=== PATIENT | female | born 1995 | race Hispanic/Latino ===

== ENCOUNTER 2018-12-15 12:37 | Emergency (ER) | payer OTHER | END 2018-12-15 14:24 | disposition home or self-care (01) | LOC: ERS 12:37 | DX: J30.9 Allergic rhinitis, unspecified (principal); H66.92 Otitis media, unspecified, left ear | CPT/HCPCS: 99283 ==

== ENCOUNTER 2019-03-06 10:19 | Day surgery (SDC) | payer OTHER ==
[2019-03-06 10:54] VITALS: BMI 31.8
[2019-03-06] MEDS ORDERED: Betamet Acet/Betamet Na Ph 30 MG/5 ML VIAL ONE (11:02)
[2019-03-06] MEDS ORDERED: Betamet Acet/Betamet Na Ph 30 MG/5 ML VIAL IM SCH (12:30)
--- NOTE | 2019-03-06 12:40 | PDOC.LDHP ---
Labor and Delivery H&P Allergies/Adverse Reactions: Allergies Allergy/AdvReac Type Severity Reaction Status Date / Time No Known Allergies Allergy Verified 09/08/13 07:35 - Assessment 24 yo at 33 and 2/7 weeks, with EDC of 04/22/19, who presents for observation and further evaluation for Intrahepatic Cholistasis of ( ICP). Bile salts on 03/01/19 resulted at 29 (NL 1-10). NST/BPP in clinic on 01/18 10/ score. Patient brought in today for BMZ 1st dose and further evaluation. REVIEW OF SYSTEMS: Gen: no fever, chills, or sweats Neuro: no numbness/tingling, no weakness, no headache Eyes: no current visual changes ENT: no hearing changes, no sore throat, no runny nose Resp: no cough, no SOB, no wheeze Card: denies chest pain, no palpitations GI: no N/V/D, no abdominal pain : no dysuria, no hematuria, no vaginal DC MSK: no issues noted Heme: no easy bruising/bleeding Skin: no rash, itching noted, worse on hands and feet. Medical Hx: SAB x 2 Surgical Hx: D&C x 1 Social Hx: No T/E/D Family Hx: Non-Contributory Allergies: NKDA Medications: Vitamins, Actigal 300mg po TID orderd - pending pre-auth PHYSICAL EXAMINATION: General: NAD, alert and oriented x3 HEENT: PERRLA, EOMI, normal sclera, oropharynx without erythema or exudate Neck: Supple. Full ROM. Heart/Cardiovascular System: RRR, Cap refill < 3 seconds, no rub, no murmur Lungs/Respiratory System: clear to auscultation bilaterally. No increased work of breathing. Room air. Abdomen/Gastro-Intestinal System: no abdominal tenderness, normal bowel sounds, Gravid Pelvic Exam: Deferred Extremeties: Warm extremities. No cyanosis, erythema, or edema Neuro: No gross deficits appreciated. CN 2-12 grossly intact Psychiatry: Awake, Alert and cooperative with exam Skin/ Integumentory: No lesions, rashes, or ulcers Musculoskeletal: Full ROM A/P: Assessment: 1. 24 y/o at 33 and 2/7 weeks present for observation and further work- up of ICP 2. Intrahepatic Cholistasis of (ICP) 3. Elevatged Bile Acids at 29 Plan: 1. BMZ course started - 1st dose today 2. NST today reacticve and reassuring, Category 1 tracing. 3. Repeat Bile Acid testing sent today 4. DC home with movement precautions 5. Return to L&D tomorrow for next BMZ dose. CMP planned tomorrow.
== END 2019-03-06 12:27 | disposition home health service (06) ==
LOC: L&D/OP 10:19
PROVIDERS: ATTEND Obstetrics & Gynecology
DX: O26.613 Liver and biliary tract disorders in pregnancy, third trimester (principal); K83.1 Obstruction of bile duct; E78.70 Disorder of bile acid and cholesterol metabolism, unspecified; Z87.59 Personal history of other complications of pregnancy, childbirth and the puerperium; Z3A.33 33 weeks gestation of pregnancy
CPT/HCPCS: 36415; 59025; 82239; 96372; 99282; J0702

== ENCOUNTER 2019-03-07 11:42 | Day surgery (SDC) | payer OTHER ==
[2019-03-07] MEDS ORDERED: Betamet Acet/Betamet Na Ph 30 MG/5 ML VIAL ONE (12:18)
[2019-03-07 12:58] VITALS: BMI 31.8
[2019-03-07 13:10] LABS: ALT (SGPT) 36 U/L (8-55); AST (SGOT) 24 U/L (5-34); Albumin 3.3 g/dL (3.5-5.0); Alkaline Phosphatase 268 U/L (40-150); Bilirubin, Direct 0.5 mg/dL (0.1-0.3); Bilirubin, Total 1.4 mg/dL (0.2-1.2); Protein, Total 6.8 g/dL (6.0-8.3)
--- NOTE | 2019-03-07 13:14 | PDOC.LDHP ---
Labor and Delivery H&P Allergies/Adverse Reactions: Allergies Allergy/AdvReac Type Severity Reaction Status Date / Time No Known Allergies Allergy Verified 09/08/13 07:35 - Plan -: 24 yo at 33 and 3/7 weeks, with EDC of 04/22/19, who presents for observation and further evaluation for Intrahepatic Cholistasis of ( ICP). Bile salts on 03/01/19 resulted at 29 (NL 1-10). NST/BPP in clinic on 01/18 10/10 score. Patient brought in today for BMZ 2nd dose and further evaluation. REVIEW OF SYSTEMS: Gen: no fever, chills, or sweats Neuro: no numbness/tingling, no weakness, no headache Eyes: no current visual changes ENT: no hearing changes, no sore throat, no runny nose Resp: no cough, no SOB, no wheeze Card: denies chest pain, no palpitations GI: no N/V/D, no abdominal pain : no dysuria, no hematuria, no vaginal DC MSK: no issues noted Heme: no easy bruising/bleeding Skin: no rash, itching noted, worse on hands and feet. Medical Hx: SAB x 2 Surgical Hx: D&C x 1 Social Hx: No T/E/D Family Hx: Non-Contributory Allergies: NKDA Medications: Vitamins, Actigal 300mg po TID orderd - pending pre-auth PHYSICAL EXAMINATION: General: NAD, alert and oriented x3 HEENT: PERRLA, EOMI, normal sclera, oropharynx without erythema or exudate Neck: Supple. Full ROM. Heart/Cardiovascular System: RRR, Cap refill < 3 seconds, no rub, no murmur Lungs/Respiratory System: clear to auscultation bilaterally. No increased work of breathing. Room air. Abdomen/Gastro-Intestinal System: no abdominal tenderness, normal bowel sounds, Gravid Pelvic Exam: Deferred Extremeties: Warm extremities. No cyanosis, erythema, or edema Neuro: No gross deficits appreciated. CN 2-12 grossly intact Psychiatry: Awake, Alert and cooperative with exam Skin/ Integumentory: No lesions, rashes, or ulcers Musculoskeletal: Full ROM A/P: Assessment: 1. 24 y/o at 33 and 3/7 weeks present for observation and further work- up of ICP 2. Intrahepatic Cholistasis of (ICP) 3. Elevatged Bile Acids at 29 Plan: 1. BMZ course started - 2nd dose today 2. NST today reacticve and reassuring, Category 1 tracing. 3. Repeat Bile Acid testing pending 4. DC home with movement precautions 5. Liver Function Testing ordered today 6. DC home with close F/U in clinic planned 7 Delivery tentatively planned at 37 weeks
[2019-03-07] MEDS ORDERED: Betamet Acet/Betamet Na Ph 30 MG/5 ML VIAL IM SCH (13:15)
== END 2019-03-07 13:37 | disposition home health service (06) ==
LOC: L&D/OP 11:42
PROVIDERS: ATTEND Obstetrics & Gynecology
DX: O26.619 Liver and biliary tract disorders in pregnancy, unspecified trimester (principal); E78.79 Other disorders of bile acid and cholesterol metabolism; Z3A.33 33 weeks gestation of pregnancy
CPT/HCPCS: 36415; 59025; 80076; 96372; 99282; J0702

== ENCOUNTER 2019-03-23 10:08 | Day surgery (SDC) | payer OTHER ==
[2019-03-23 10:42] VITALS: BMI 32.3
[2019-03-23] MEDS ORDERED: Betamet Acet/Betamet Na Ph 30 MG/5 ML VIAL ONE (11:39)
[2019-03-23] MEDS ORDERED: Betamet Acet/Betamet Na Ph 30 MG/5 ML VIAL IM SCH (12:00)
--- NOTE | 2019-03-23 12:12 | PDOC.EVN ---
Event Note - Event Note Event Note: Patient here for NST for cholestasis of , no complaints. AFVSS NST reactive. Baseline 125s, mod variability, + accels, no decels. [place] with occasional ctx. Received 1 rescue dose celestone per [facility] recommendation. Will return tomorrow for induction of labor.
== END 2019-03-23 12:20 | disposition home or self-care (01) ==
LOC: L&D/OP 10:08
PROVIDERS: ATTEND Obstetrics & Gynecology
DX: Z29.8 Encounter for other specified prophylactic measures (principal); Z01.89 Encounter for other specified special examinations
CPT/HCPCS: 59025; 96372; 99282; J0702

== ENCOUNTER 2019-03-24 18:00 | Inpatient (IN) | payer OTHER ==
[2019-03-24] MEDS ORDERED: hydrALAZINE 20 MG/ML VIAL SLOW IVP PRN (18:55)
[2019-03-24] MEDS ORDERED: Zolpidem Tartrate 5 MG TAB PO PRN (18:55)
[2019-03-24] MEDS ORDERED: Diphenoxylate HCl/Atropine Tablet PO PRN ×2 (18:55)
[2019-03-24] MEDS ORDERED: Ibuprofen 800 MG TAB PO PRN (18:55)
[2019-03-24] MEDS ORDERED: Promethazine HCl 25 MG/ML VIAL IM PRN (18:55)
[2019-03-24] MEDS ORDERED: Misoprostol 200 MCG TAB PR PRN (18:55)
[2019-03-24] MEDS ORDERED: Methylergonovine 0.2 MG/ML VIAL IM PRN (18:55)
[2019-03-24] MEDS ORDERED: Lidocaine 1% (PF) 30 ML VIAL SC PRN (18:55)
[2019-03-24] MEDS ORDERED: Carboprost 250 MCG/ML AMP IM PRN (18:55)
[2019-03-24] MEDS ORDERED: Acetaminophen 500 MG TAB PO PRN (18:55)
[2019-03-24] MEDS ORDERED: Ondansetron PF 4 MG/2 ML Vial IVP PRN (18:55)
[2019-03-24] MEDS ORDERED: Butorphanol Tartrate 1 MG/ML VIAL SLOW IVP PRN (18:55)
[2019-03-24] MEDS ORDERED: HYDROcodone/Acetaminophen 5/325 mg Tablet PO PRN ×2 (18:55)
[2019-03-24] MEDS ORDERED: NS w/ Oxytocin 10 units 500 ML IV SCH ×2 (19:00)
--- NOTE | 2019-03-24 19:04 | PDOC.LDHP ---
Labor and Delivery H&P Current gestational age (weeks): 35 Due date: 04/22/19 Grav: 5 Para: 2 Current complications: other (ICP (severe)) Abnormal US findings: No Current medications: pre- vitamins, other (Actigal 250mg po TID) Previous surgical history: none Allergies/Adverse Reactions: Allergies Allergy/AdvReac Type Severity Reaction Status Date / Time No Known Allergies Allergy Verified 09/08/13 07:35 Social history: none - Physical Exam Vital signs reviewed and normal: yes General: NAD Lungs: CTAB Abdomen: gravid Extremeties: no edema FHT: category 1 - Assessment ICP (severe) with MFM recommendation to deliver at 36 weeks. - Plan Plan: admit to L&D, cervical ripening
[2019-03-24 19:41] LABS: Hemoglobin 11.6 g/dL (12.0-16.0); Mean Corpuscular HGB CONC 33.8 g/dL (32.0-36.0); Mean Corpuscular Hemoglobin 24.7 pg (27.0-31.0); Mean Corpuscular Volume 73.2 fL (78.0-98.0); Mean Platelet Volume 10.3 fL (7.4-10.4); Platelet Count 295 thou/uL (130-400); RBC Distribution Width 14.6 % (11.5-14.5); Red Blood Cell (RBC) Count 4.67 mill/uL (4.20-5.40); White Blood Cell (WBC) Count 9.1 thou/uL (4.8-10.8)
[2019-03-24] MEDS: Misoprostol 100 MCG TAB VAG SCH (19:50)
[2019-03-24] MEDS: Lactated Ringer's 1,000 ML IV SCH (19:51)
[2019-03-24 19:53] LABS: ALT (SGPT) 102 U/L (8-55); AST (SGOT) 56 U/L (5-34); Albumin 3.7 g/dL (3.5-5.0); Alkaline Phosphatase 281 U/L (40-150); Anion Gap 19 mmol/L (10-20); BUN (Urea Nitrogen) 10 mg/dL (7.0-18.7); Bilirubin, Total 1.5 mg/dL (0.2-1.2); Calc. Creatinine Clearance 1265 mL/min (70-130); Calcium 9.3 mg/dL (7.8-10.44); Carbon Dioxide 17 mmol/L (22-29); Chloride 102 mmol/L (98-107); Estimated GFR-MDRD 84; Globulin 3.5 g/dL (2.4-3.5); Glucose 75 mg/dL (70-105); Potassium 3.9 mmol/L (3.5-5.1); Protein, Total 7.2 g/dL (6.0-8.3); Sodium 134 mmol/L (136-145)
[2019-03-24 20:12] LABS: Syphilis Antibody Nonreactive (Nonreactive); Syphilis Antibody Index 0.07 S/CO (<1.00 Non-Reactive)
[2019-03-24 20:18] LABS: HBSAg Index 0.24 S/CO (0-0.99); Hep B Surf Ag Non-Reactive S/CO (NonReactive)
[2019-03-25] MEDS: Misoprostol 100 MCG TAB VAG SCH ×3 (00:07→16:10)
[2019-03-25] MEDS: Lactated Ringer's 1,000 ML IV SCH ×3 (01:45→10:57)
[2019-03-25 03:35] VITALS: BMI 34.1
[2019-03-25] MEDS ORDERED: Fentanyl 4 mcg/Bup 0.1% Cadd 100 ML ONE (06:22)
[2019-03-25] MEDS ORDERED: Naloxone HCl 0.4 mg/ml Vial IVP PRN ×2 (07:24)
[2019-03-25] MEDS ORDERED: Lactated Ringer's 500 ML IV PRN (07:24)
[2019-03-25] MEDS ORDERED: Promethazine HCl 25 MG/ML VIAL IM PRN ×2 (07:24→14:53)
[2019-03-25] MEDS ORDERED: Ondansetron PF 4 MG/2 ML Vial IVP PRN ×2 (07:24→14:53)
[2019-03-25] MEDS ORDERED: diphenhydrAMINE 50 MG/ML VIAL IVP PRN (07:24)
[2019-03-25] MEDS ORDERED: Acetaminophen 325 MG TAB PO PRN (07:24)
[2019-03-25] MEDS ORDERED: ePHEDrine/0.9% NaCl/PF SYRINGE 50 mg/10 ml SLOW IVP PRN (07:24)
[2019-03-25] MEDS ORDERED: Communication Order-Pharmacy FS SCH (07:30)
[2019-03-25] MEDS ORDERED: Fentanyl 4 mcg/Bupivacaine 0.1% Cassette 100 ML EPIDURAL SCH (07:30)
[2019-03-25] MEDS: NS / Oxytocin 40 units/1000ml 1,000 ML IV PRN ×2 (12:35→13:32)
[2019-03-25] MEDS ORDERED: Methylergonovine 0.2 MG/ML VIAL IM PRN (14:53)
[2019-03-25] MEDS ORDERED: HYDROcodone/Acetaminophen 5/325 mg Tablet PO PRN ×2 (14:53)
[2019-03-25] MEDS ORDERED: diphenhydrAMINE 25 MG CAP PO PRN (14:53)
[2019-03-25] MEDS ORDERED: Varicella virus, LIVE 0.5 ML VIAL SC ONE (14:53)
[2019-03-25] MEDS ORDERED: Misoprostol 200 MCG TAB VAG PRN (14:53)
[2019-03-25] MEDS ORDERED: NS / Oxytocin 40 units/1000ml 1,000 ML IV SCH (14:53)
[2019-03-25] MEDS ORDERED: Measles/Mumps/Rubella 10 MCG/0.5 ML VIAL SC ONE (14:53)
[2019-03-25] MEDS ORDERED: Adacel (T-DAP) 0.5 ML SYRINGE IM ONE (14:53)
[2019-03-25] MEDS ORDERED: hydrALAZINE 20 MG/ML VIAL SLOW IVP PRN (14:53)
[2019-03-25] MEDS ORDERED: Bisacodyl 10 MG SUPP PR PRN (14:53)
[2019-03-25] MEDS ORDERED: Milk Of Magnesia 30 ML UDCUP PO PRN (14:53)
[2019-03-25] MEDS ORDERED: Preparation H Ointment 28 GM TUBE PR PRN (14:53)
[2019-03-25] MEDS ORDERED: Lanolin Ointment 7 GM TUBE TOP PRN (14:53)
[2019-03-25] MEDS ORDERED: Benzocaine-Menthol 82.5 ML CAN TOP PRN (14:53)
[2019-03-25] MEDS ORDERED: Zolpidem Tartrate 5 MG TAB PO PRN (14:53)
[2019-03-25] MEDS: Ibuprofen 800 MG TAB PO SCH ×2 (15:00→21:53)
[2019-03-25] MEDS: Ferrous Sulfate 325 MG TAB PO SCH (16:08)
[2019-03-25] MEDS ORDERED: Bupivacaine HCl 0.25%/Epi 0.0005/PF 10 ML VIAL FS ONE (18:00)
[2019-03-25] MEDS ORDERED: Lidocaine 2% MPF 10 ML AMP (For Epidural Use) ONE (18:00)
[2019-03-25] MEDS: Docusate Calcium (SURFAK) 240 MG CAP PO SCH (21:53)
[2019-03-26] MEDS: Ibuprofen 800 MG TAB PO SCH ×3 (05:42→21:42)
[2019-03-26 07:13] LABS: Hemoglobin 9.1 g/dL (12.0-16.0)
[2019-03-26] MEDS: Docusate Calcium (SURFAK) 240 MG CAP PO SCH ×2 (09:28→21:42)
[2019-03-26] MEDS: Ferrous Sulfate 325 MG TAB PO SCH ×2 (09:28→17:21)
[2019-03-27] MEDS: Ibuprofen 800 MG TAB PO SCH ×2 (05:49→14:45)
--- NOTE | 2019-03-27 07:15 | PDOC.PP ---
Post Progress Note Post Day #: 1 PO intake tolerated: yes Flatus: yes Ambulation: yes Vital Signs (12 hours) Temp Pulse Resp BP Pulse Ox 03/26/19 19:24 97.6 F 79 16 120/73 99 Weight Weight 169 lb - Physical Examination General: NAD Cardiovascular: no m/r/g Respiratory: clear to auscultation bilaterally Abdominal: + bowel sounds, lochia Extremities: negative homans (B) Neurological: no gross focal deficits (DC home tomorrow) Psychiatric: A&Ox3, normal affect Result Diagrams: 03/26/19 06:40 03/24/19 19:27 Additional Labs: Post Labs Blood Type O POSITIVE 03/24/19 19:27 Hep Bs Antigen Non-Reactive S/CO (NonReactive) 03/24/19 19:27
[2019-03-27] MEDS: Ferrous Sulfate 325 MG TAB PO SCH (09:46)
[2019-03-27] MEDS: Docusate Calcium (SURFAK) 240 MG CAP PO SCH (09:46)
[2019-03-27 11:28] VITALS: BP 114/70; TEMP 98.3
== END 2019-03-27 16:14 | disposition home or self-care (01) | DRG 805 ==
LOC: L&D 18:13 → 3SE 03-25 16:05
PROVIDERS: ADMIT Obstetrics & Gynecology; ATTEND Obstetrics & Gynecology
PROC: 10E0XZZ Delivery of Products of Conception, External Approach (ICD-10-PCS; principal; 2019-03-25)
PROC: 3E0P7VZ Introduction of Hormone into Female Reproductive, Via Natural or Artificial Opening (ICD-10-PCS; 2019-03-25)
PROC: 0HQ9XZZ Repair Perineum Skin, External Approach (ICD-10-PCS; 2019-03-25)
DX: O99.354 Diseases of the nervous system complicating childbirth (principal); K83.1 Obstruction of bile duct; Z37.0 Single live birth; Z3A.36 36 weeks gestation of pregnancy; G93.2 Benign intracranial hypertension; O26.62 Liver and biliary tract disorders in childbirth; O70.1 Second degree perineal laceration during delivery
CPT/HCPCS: 36415; 51702; 80053; 85014; 85018; 85027; 86780; 86850; 86900; 86901; 87340; 90707; 90715; 90716; J2001; J2590

== ENCOUNTER 2019-12-14 19:50 | Observation (INO) | payer MEDICAID, OTHER ==
[2019-12-14 20:42] LABS: Bilirubin Small (Negative); Blood, Urine Negative (Negative); Clarity Hazy (Clear); Glucose, Urine (Dipstick) Negative (Negative); Leukocyte Negative (Negative); Nitrite Negative (Negative); Protein, Urine (Dipstick) Negative (Neg-Trace)
[2019-12-14 21:22] LABS: #Lymphocytes 0.5 thou/uL (1.20-3.40); #Monocytes 0.6 thou/uL (0.11-0.59); #Neutrophils 6.1 thou/uL (1.40-6.50); %Basophils 0.1 % (0.0-1.0); %Eosinophils 0.3 % (0.0-10.0); %Lymphocytes 7.2 % (21.0-51.0); %Monocytes 7.6 % (0.0-10.0); %Neutrophils 84.8 % (42.0-75.0); Hemoglobin 14.2 g/dL (12.0-16.0); Mean Corpuscular HGB CONC 35.2 g/dL (32.0-36.0); Mean Corpuscular Hemoglobin 29.2 pg (27.0-31.0); Mean Corpuscular Volume 82.9 fL (78.0-98.0); Mean Platelet Volume 9.4 fL (7.4-10.4); Platelet Count 197 thou/uL (130-400); RBC Distribution Width 12.3 % (11.5-14.5); Red Blood Cell (RBC) Count 4.86 mill/uL (4.20-5.40); White Blood Cell (WBC) Count 7.1 thou/uL (4.8-10.8)
--- NOTE | 2019-12-14 21:25 | RAD ---
Portable frontal chest radiograph: 12/14/2019 COMPARISON: None HISTORY: Fever FINDINGS: Lungs are clear. Heart and mediastinal contours appear within normal limits. IMPRESSION: No acute findings.
[2019-12-14] MEDS ORDERED: Acetaminophen 325 MG TAB ONE (21:38)
[2019-12-14] MEDS ORDERED: Ondansetron PF 4 MG/2 ML Vial ONE (21:38)
[2019-12-14 21:46] LABS: ALT (SGPT) 17 U/L (8-55); AST (SGOT) 14 U/L (5-34); Albumin 4.5 g/dL (3.5-5.0); Alkaline Phosphatase 84 U/L (40-110); Anion Gap 14 mmol/L (10-20); BUN (Urea Nitrogen) 5 mg/dL (7.0-18.7); Bilirubin, Total 1.5 mg/dL (0.2-1.2); Calc. Creatinine Clearance 0 mL/min (70-130); Calcium 9.7 mg/dL (7.8-10.44); Carbon Dioxide 21 mmol/L (22-29); Chloride 102 mmol/L (98-107); Estimated GFR-MDRD Greater than 90; Globulin 3.3 g/dL (2.4-3.5); Glucose 91 mg/dL (70-105); Potassium 3.3 mmol/L (3.5-5.1); Protein, Total 7.8 g/dL (6.0-8.3); Sodium 134 mmol/L (136-145)
--- NOTE | 2019-12-14 23:06 | MRI ---
MRI of theabdomen: 12/14/2019 COMPARISON:None available HISTORY:Lower abdominal pain and vomiting TECHNIQUE: Multiplanar multisequence MR imaging of the abdomen obtained without contrast Findings:There is an intrauterine gestation present, incompletely assessed on this exam. Bilateral ovaries demonstrate a grossly unremarkable appearance. The inferior aspect of the liver appears unremarkable. The liver is not fully visualized on this exam . The spleen is not imaged. Visualized portions of the kidneys are grossly unremarkable. Arterial flow voids within the imaged abdomen appear grossly unremarkable. The pancreas and gallbladder are no t fully assessed on this exam. The imaged osseous structures appear grossly unremarkable. No lymphadenopathy is apparent. The appendix is visualized and appears unremarkable IMPRESSION: No evidence for appendicitis.
[2019-12-15] MEDS ORDERED: Acetaminophen 325 MG TAB PO PRN (02:07)
[2019-12-15] MEDS ORDERED: Ondansetron PF 4 MG/2 ML Vial IVP PRN (02:07)
[2019-12-15] MEDS ORDERED: Ondansetron ODT 4 MG TAB SL PRN (02:07)
[2019-12-15] MEDS ORDERED: Dextrose 5 %-0.45 % NaCl 1,000 ML IV SCH (02:15)
[2019-12-15] MEDS ORDERED: Calcium Carbonate 500 MG ChewTAB PO PRN (02:43)
[2019-12-15] MEDS ORDERED: Promethazine HCl 12.5 MG in Sodium Chloride 0.9% 50 ML IVPB PRN (02:43)
[2019-12-15 02:44] VITALS: BMI 28.0
[2019-12-15] MEDS ORDERED: Lactated Ringer's 1,000 ML IV SCH ×3 (02:45→12:00)
--- NOTE | 2019-12-15 02:55 | PDOC.FPROB ---
FMR OB H&P: HPI - History of Present Illness Chief Complaint: Nausea, vomiting, fever Indentification: 24yo female at 10wks History of Present Illness: 24yo female at 10wks presents with nausea, vomiting for the last 3-4 weeks and fever that started 3/15 around 1pm with Tmax of 101. Vomiting 6x per day. Reports having lower abdominal pain starting today but it has mostly resolved. Received 2L IVF in the ED and felt better afterwards, has urinated more than once since receiving fluids. Also received 8mg Zofran and Tylenol with some relief in symtpoms she was able to tolerate eating an orange. No vomiting since presentation to ED. Endorses congestion. Denies cough, sore throat, dysuria, sick contacts, diarrhea. Rapid flu swab in ED was neg. MRI was neg for appendicitis. Primary Care Physician: Dr Noguera FMR OB H&P: Current - Care : 6 Para: 3 Gestational age: 10.0wks FMR OB H&P: History - Past Medical History PMH: Denies - Surgical History Sx History: D&C 2011 - Social History Social History: Denies tobacco, alcohol and drug use - Family History Family History: Unremarkable FMR OB H&P: Medications - Current Home Medications: Medication Instructions Recorded Confirmed Type Vitamin 1 tab PO DAILY #0 tab 09/09/13 03/25/19 Rx Ursodiol [Rafael] 250 mg PO TID 03/23/19 03/25/19 History Calcium Carbonate [Tums] 1,000 mg PO Q4H PRN tab 12/15/19 Rx Doxylamine Succinate/Vit B6 2 tablet PO HS #60 tablet. 12/15/19 Rx [Ebenezer BRAVO] Allergies/Adverse Reactions: Allergies Allergy/AdvReac Type Severity Reaction Status Date / Time No Known Allergies Allergy Verified 09/08/13 07:35 FMR OB H&P: ROS - Review of Systems General: reports: fever/chills, fatigue Eyes: denies: vision changes, double vision ENT: reports: nasal congestion. denies: rhinorrhea, sore throat Cardiovascular: denies: chest pain, edema Respiratory: reports: congestion. denies: cough Gastrointestinal: reports: abdominal pain, nausea, vomiting. denies: diarrhea Genitourinary (Female): denies: dysuria, polyuria Neurologic: denies: weakness Integumentary: denies: rash, lesions FMR OB H&P: Vital Signs - Maternal Vital signs: Temp 98.2 BP: 115/53 HR: 95 RR: 17 FMR OB H&P: Physical Exam - Physical Exam General: NAD, awake, alert and oriented HEENT: normocephalic and atraumatic, conjunctiva clear, grossly normal hearing, oropharynx clear Deviation from normal: Dry MM Neck: supple, trachea midline Heart: RRR, no murmurs/rubs/gallops General: CTAB, no respiratory distress, no wheezing Abdomen: soft, gravid, non-tender, bowel sound present Musculoskeletal: pulses present, no misalignment/asymmetry, no atrophy Neurological: no focal deficit Skin: no rash Lymphatic: no petechia Psychiatric: intact recent and remote memory, good judgement and insight, normal mood and affect FMR OB H&P: Results - Labs Lab results: Laboratory Results - last 24 hr 12/14/19 12/14/19 12/14/19 20:00 21:13 21:13 WBC 7.1 RBC 4.86 Hgb 14.2 Hct 40.3 MCV 82.9 MCH 29.2 MCHC 35.2 RDW 12.3 Plt Count 197 MPV 9.4 Neutrophils % 84.8 H Lymphocytes % 7.2 L Monocytes % 7.6 Eosinophils % 0.3 Basophils % 0.1 Neutrophils # 6.1 Lymphocytes # 0.5 L Monocytes # 0.6 H Eosinophils # 0.0 Basophils # 0.0 Sodium 134 L Potassium 3.3 L Chloride 102 Carbon Dioxide 21 L Anion Gap 14 BUN 5 L Creatinine 0.75 Estimated GFR (MDRD) Greater than 90 Glucose 91 Calcium 9.7 Total Bilirubin 1.5 H AST 14 ALT 17 Alkaline Phosphatase 84 Serum Total Protein 7.8 Albumin 4.5 Globulin 3.3 Albumin/Globulin Ratio 1.4 Total Beta HCG Urine Color Yellow Urine Clarity Hazy Urine pH 8.5 Ur Specific [employer] 1.015 Urine Protein Negative Urine Glucose (UA) Negative Urine Ketones 80 A Urine Blood Negative Urine Nitrite Negative Urine Bilirubin Small A Urine Urobilinogen 4.0 A Ur Leukocyte Esterase Negative 12/14/19 21:13 WBC RBC Hgb Hct MCV MCH MCHC RDW Plt Count MPV Neutrophils % Lymphocytes % Monocytes % Eosinophils % Basophils % Neutrophils # Lymphocytes # Monocytes # Eosinophils # Basophils # Sodium Potassium Chloride Carbon Dioxide Anion Gap BUN Creatinine Estimated GFR (MDRD) Glucose Calcium Total Bilirubin AST ALT Alkaline Phosphatase Serum Total Protein Albumin Globulin Albumin/Globulin Ratio Total Beta HCG 733848.93 H Urine Color Urine Clarity Urine pH Ur Specific [employer] Urine Protein Urine Glucose (UA) Urine Ketones Urine Blood Urine Nitrite Urine Bilirubin Urine Urobilinogen Ur Leukocyte Esterase FMR OB H&P: A/P Disposition: 24yo female at 10wks presents with nausea, vomiting and abdominal pain. Moderate Dehydration 2/2 likely viral gastroenteritis - Initially tachycardic and febrile. Received 2L IVF in ED. MRI neg for appendicitis. UA and Flu neg. Likely viral gastroenteritis - Will continue her on a little above maintenance fluids overnight, strict I&Os and adjust rate accordingly until she is tolerating PO - NPO with advance diet as tolerate. Advised to avoid hot foods with scents. - Scheduled Zofran 4mg q6hr, Unisom qHS and Vit B6 BID. PRN phenergan available. Hypokalemia - 3.3 - LR with 20meq KCl then switch to LR @120 Discussion: Date/Time: 12/15/19 0253 This H&P was discussed with Dr. Ochoa who agrees with the above documentation and plan. Addendum - Attending - Attending Attestation Date/Time: 12/17/19 0024 I personally evaluated the patient and discussed the management with Dr. Reyes I agree with the History, Examination, Assessment and Plan documented above with any addition or exceptions noted below. Gasteroenteritis less likely, More likely experiencing nausea and vomiting of . Pt has be iv hydrated and is tolerating PO. PT is discharged home with instructions to f/u with pcp, dr noguera
[2019-12-15] MEDS ORDERED: Potassium Chloride 20 MEQ in Lactated Ringer's 1,000 ML IV SCH ×2 (03:15→03:30)
[2019-12-15] MEDS: Ondansetron PF 4 MG/2 ML Vial IVP SCH ×2 (04:07→10:35)
[2019-12-15] MEDS ORDERED: FLU VACC QS2019-20(6MOS UP)/PF 60 MCG/0.5 ML SYRINGE IM ONE (09:00)
[2019-12-15 12:40] VITALS: BP 92/54; TEMP 98.9
--- NOTE | 2019-12-15 14:56 | PDOC.OBAPN ---
FMR OB AP PN: Sub - Interval History Hospital Day: 1 Chief Complaint: mild nausea Interval History: Tolerated breakfast well. No vomiting since getting to the floor. R OB AP PN: Obj - Maternal Vital signs: BP: 92/54 HR: 86 RR: 18 Tmax: 98.9F Pox: 98% on RA Wt: 63.049 kg - Urine output I&O: 12/14/19 12/15/19 12/16/19 06:59 06:59 06:59 Intake Total 480 240 Output Total 600 Balance 480 -360 R OB AP PN: Exam - Physical Exam General: NAD, awake, alert and oriented HEENT: normocephalic and atraumatic, MMM, grossly normal vision, grossly normal hearing General: no respiratory distress Abdomen: gravid Musculoskeletal: FROM in all four extremities Neurological: cranial nerves II through XII intact, sensation to pain,touch and proprioception grossly normal, no focal deficit Skin: no rash Psychiatric: intact recent and remote memory, good judgement and insight, normal mood and affect R OB AP PN: Data - Labs Lab results: Laboratory Results - last 24 hr 12/14/19 12/14/19 12/14/19 20:00 21:13 21:13 WBC 7.1 RBC 4.86 Hgb 14.2 Hct 40.3 MCV 82.9 MCH 29.2 MCHC 35.2 RDW 12.3 Plt Count 197 MPV 9.4 Neutrophils % 84.8 H Lymphocytes % 7.2 L Monocytes % 7.6 Eosinophils % 0.3 Basophils % 0.1 Neutrophils # 6.1 Lymphocytes # 0.5 L Monocytes # 0.6 H Eosinophils # 0.0 Basophils # 0.0 Sodium 134 L Potassium 3.3 L Chloride 102 Carbon Dioxide 21 L Anion Gap 14 BUN 5 L Creatinine 0.75 Estimated GFR (MDRD) Greater than 90 Glucose 91 Calcium 9.7 Total Bilirubin 1.5 H AST 14 ALT 17 Alkaline Phosphatase 84 Serum Total Protein 7.8 Albumin 4.5 Globulin 3.3 Albumin/Globulin Ratio 1.4 Total Beta HCG Urine Color Yellow Urine Clarity Hazy Urine pH 8.5 Ur Specific [place] 1.015 Urine Protein Negative Urine Glucose (UA) Negative Urine Ketones 80 A Urine Blood Negative Urine Nitrite Negative Urine Bilirubin Small A Urine Urobilinogen 4.0 A Ur Leukocyte Esterase Negative 12/14/19 21:13 WBC RBC Hgb Hct MCV MCH MCHC RDW Plt Count MPV Neutrophils % Lymphocytes % Monocytes % Eosinophils % Basophils % Neutrophils # Lymphocytes # Monocytes # Eosinophils # Basophils # Sodium Potassium Chloride Carbon Dioxide Anion Gap BUN Creatinine Estimated GFR (MDRD) Glucose Calcium Total Bilirubin AST ALT Alkaline Phosphatase Serum Total Protein Albumin Globulin Albumin/Globulin Ratio Total Beta HCG 300807.93 H Urine Color Urine Clarity Urine pH Ur Specific [place] Urine Protein Urine Glucose (UA) Urine Ketones Urine Blood Urine Nitrite Urine Bilirubin Urine Urobilinogen Ur Leukocyte Esterase FMR OB AP PN: A/P - Problem List (1) Nausea and vomiting during prior to 22 weeks gestation Status: Acute Code(s): O21.9 - VOMITING OF , UNSPECIFIED Disposition: 24yo female at 10 wks who presented with nausea, vomiting and abdominal pain 2/2 suspected viral gastroenteritis. Moderate Dehydration 2/2 likely viral gastroenteritis - Initially tachycardic and febrile but has since resolved s/p 2L IVF in ED & IVFs overnight. MRI neg for appendicitis. UA and Flu neg. Likely viral gastroenteritis. - Tolerated breakfast well with no emesis since admission. Will d/c IVFs & see how patient tolerates lunch and if she does w/o any issues will d/c home with script for diclegis & instructions to f/u w/ Dr. Stallings tomorrow as an outpatient. Hypokalemia - s/p replacement w/ IVFs. Dispo: Anticipate d/c home later today w/ close f/u with PCP as an outpatient. Discussion: Date/Time: 12/15/19 5015 This H&P was discussed with Dr. Hoover who agrees with the above documentation and plan.
--- NOTE | 2019-12-15 16:38 | DIS ---
DATE OF ADMISSION: 12/15/2019 DATE OF DISCHARGE: 12/15/2019 ADMITTING DIAGNOSES: 1. First trimester . 2. Nausea and vomiting of . 3. The patient was admitted by Dr. Ochoa and Crys Reyes. HOSPITAL COURSE: In brief, this patient presents as a patient of Dr. Stallings and this patient is a 24-year-old multigravida who is about 10 weeks gestation, who was admitted for about a 3 to 4 week history of some nausea, vomiting, and some on and off fever, but she denied any cough or sore throat or URI symptoms, and she did, however, endorse some congestion. She had a rapid flu swab in the ER, which was negative. An MRI was done as well and that was negative for appendicitis. They did visualize an intrauterine gestation on that MRI. The patient's AST and ALT were normal on admission and urine ketones were moderate. Her white blood cell count was normal at 7. She was admitted for just overnight observation and to see if she tolerated her diet. She had a urine culture as well. It showed no growth at 12 hours. Blood culture also had no growth to date. The patient was evaluated on 12/15/2019 at around 2:30 p.m. and she had tolerated a regular diet and was feeling a lot better just after some IV hydration, so plan was to send her home on some Diclegis. On vital sign assessment, blood pressures were 90s over 50s to 60s and she was actually afebrile throughout her admission, making possible dehydration the cause of the temperature elevation versus mild gastroenteritis. There was no evidence of septic process and that she was clinically well. The idea was to send her home and have her follow up on 12/16/2019, with Dr. Stallings. Job ID: [id number]
[2019-12-15] MEDS ORDERED: Doxylamine 25 MG TAB PO SCH (21:00)
== END 2019-12-15 15:18 | disposition home or self-care (01) ==
LOC: ERS 19:50 → 3SE 12-15 00:57
PROVIDERS: ADMIT Obstetrics & Gynecology; ATTEND Obstetrics & Gynecology
DX: O21.9 Vomiting of pregnancy, unspecified (principal); O99.89 Other specified diseases and conditions complicating pregnancy, childbirth and the puerperium; R50.9 Fever, unspecified; R10.30 Lower abdominal pain, unspecified; O99.281 Endocrine, nutritional and metabolic diseases complicating pregnancy, first trimester; E86.0 Dehydration; E87.6 Hypokalemia; Z3A.10 10 weeks gestation of pregnancy; Z79.899 Other long term (current) drug therapy
CPT/HCPCS: 36415; 71045; 74181; 80053; 81003; 84702; 85025; 87040; 87086; 87804; 96361; 96365; 96374; 96375; 96376; G0378; J2405; J3415; J3480; J7120

== ENCOUNTER 2020-06-09 10:35 | Outpatient (CLI) | payer OTHER ==
[2020-06-10 13:03] LABS: SARS-CoV-2 MS2 Positive; SARS-CoV-2 N Gene Negative; SARS-CoV-2 S Gene Negative; SARS-CoV-2 by NAA Not Detected (NotDetected); SARS-CoV-2 orf1ab Negative
== END 2020-06-09 10:36 | disposition home or self-care (01) ==
LOC: LABSCS 10:35
PROVIDERS: ATTEND Obstetrics & Gynecology
DX: Z20.828 Contact with and (suspected) exposure to other viral communicable diseases (principal)
CPT/HCPCS: 87635; U0003

== ENCOUNTER 2020-06-09 12:04 | Day surgery (SDC) | payer OTHER ==
[2020-06-09] MEDS ORDERED: Betamet Acet/Betamet Na Ph 30 MG/5 ML VIAL ONE (12:17)
[2020-06-09] MEDS ORDERED: Betamet Acet/Betamet Na Ph 30 MG/5 ML VIAL IM SCH (12:30)
== END 2020-06-09 12:27 | disposition home or self-care (01) ==
LOC: L&D/OP 12:04
PROVIDERS: ATTEND Obstetrics & Gynecology
DX: Z29.8 Encounter for other specified prophylactic measures (principal)
CPT/HCPCS: 87635; J0702; U0003

== ENCOUNTER 2020-06-10 12:33 | Day surgery (SDC) | payer OTHER | END 2020-06-10 12:45 | disposition home health service (06) | LOC: L&D/OP 12:33 | PROVIDERS: ATTEND Obstetrics & Gynecology | DX: Z29.8 Encounter for other specified prophylactic measures (principal) | CPT/HCPCS: 96372 ==

== ENCOUNTER 2020-06-12 18:00 | Inpatient (IN) | payer OTHER ==
[~2020-06-12 18:00] MED LIST: Bupivacaine/Epinephrine 0.25% 30 ML VIAL ONE
[2020-06-12 20:25] VITALS: BMI 31.3
[2020-06-12] MEDS ORDERED: Carboprost 250 MCG/ML AMP IM PRN (20:45)
[2020-06-12] MEDS ORDERED: hydrALAZINE 20 MG/ML VIAL SLOW IVP PRN (20:45)
[2020-06-12] MEDS ORDERED: Butorphanol Tartrate 1 MG/ML VIAL SLOW IVP PRN (20:45)
[2020-06-12] MEDS ORDERED: HYDROcodone/Acetaminophen 5/325 mg Tablet PO PRN ×2 (20:45)
[2020-06-12] MEDS ORDERED: Docusate 100 MG CAP PO PRN (20:45)
[2020-06-12] MEDS ORDERED: Misoprostol 200 MCG TAB PR PRN (20:45)
[2020-06-12] MEDS ORDERED: Diphenoxylate HCl/Atropine Tablet PO PRN ×2 (20:45)
[2020-06-12] MEDS ORDERED: Lidocaine 1% (PF) 30 ML VIAL SC PRN (20:45)
[2020-06-12] MEDS ORDERED: Promethazine HCl 25 MG/ML VIAL IM PRN (20:45)
[2020-06-12] MEDS ORDERED: Methylergonovine 0.2 MG/ML VIAL IM PRN (20:45)
[2020-06-12] MEDS ORDERED: NS / Oxytocin 40 units/1000ml 1,000 ML IV PRN (20:45)
[2020-06-12] MEDS ORDERED: Acetaminophen 500 MG TAB PO PRN (20:45)
[2020-06-12] MEDS ORDERED: Ibuprofen 800 MG TAB PO PRN (20:45)
[2020-06-12] MEDS ORDERED: Zolpidem Tartrate 5 MG TAB PO PRN (20:45)
[2020-06-12] MEDS ORDERED: Ondansetron PF 4 MG/2 ML Vial IVP PRN (20:45)
--- NOTE | 2020-06-12 20:54 | PDOC.LDHP ---
Labor and Delivery H&P Chief complaint: scheduled induction HPI: 25 y/o , 36 and 0/7 weeks at midnight, presents for medical induction of labor with recurrent, severe range cholistasis of . GBS neg. BMZ x 2 dose given earlier this week. Current gestational age (weeks): 36 Due date: 07/11/20 Grav: 6 Para: 3 Abnormal US findings: No Current medications: pre- vitamins Allergies/Adverse Reactions: Allergies Allergy/AdvReac Type Severity Reaction Status Date / Time No Known Allergies Allergy Verified 06/12/20 20:26 Social history: none - Physical Exam Vital signs reviewed and normal: yes General: NAD, resting Heart: RRR Lungs: CTAB Abdomen: gravid Extremeties: no edema FHT: category 1 - Assessment L&D Assessment: medically indicated induction - Plan Plan: admit to L&D, cervical ripening
[2020-06-12] MEDS ORDERED: NS w/ Oxytocin 10 units 500 ML IV SCH ×2 (21:00)
[2020-06-12] MEDS: Misoprostol 100 MCG TAB VAG SCH (21:12)
[2020-06-12] MEDS: Lactated Ringer's 1,000 ML IV SCH (21:12)
[2020-06-12 21:33] LABS: Hemoglobin 10.2 g/dL (12.0-16.0); Mean Corpuscular HGB CONC 33.2 g/dL (32.0-36.0); Mean Corpuscular Hemoglobin 22.3 pg (27.0-31.0); Mean Corpuscular Volume 67.2 fL (78.0-98.0); Mean Platelet Volume 11.9 fL (7.4-10.4); Platelet Count 294 thou/uL (130-400); RBC Distribution Width 16.3 % (11.5-14.5); Red Blood Cell (RBC) Count 4.59 mill/uL (4.20-5.40); White Blood Cell (WBC) Count 9.7 thou/uL (4.8-10.8)
[2020-06-12 21:44] LABS: ALT (SGPT) 28 U/L (8-55); AST (SGOT) 16 U/L (5-34); Albumin 3.5 g/dL (3.5-5.0); Alkaline Phosphatase 202 U/L (40-110); Anion Gap 16 mmol/L (10-20); BUN (Urea Nitrogen) 12 mg/dL (7.0-18.7); Bilirubin, Total 0.9 mg/dL (0.2-1.2); Calc. Creatinine Clearance 131 mL/min (70-130); Calcium 8.7 mg/dL (7.8-10.44); Carbon Dioxide 20 mmol/L (22-29); Chloride 104 mmol/L (98-107); Estimated GFR-MDRD Greater than 90; Globulin 3.3 g/dL (2.4-3.5); Glucose 83 mg/dL (70-105); Protein, Total 6.8 g/dL (6.0-8.3); Sodium 136 mmol/L (136-145)
[2020-06-12 21:59] LABS: Syphilis Antibody Nonreactive (Nonreactive); Syphilis Antibody Index 0.06 S/CO (<1.00 Non-Reactive)
[2020-06-12 22:45] LABS: HBSAg Index 0.16 S/CO (0-0.99); Hep B Surf Ag Non-Reactive S/CO (NonReactive)
[2020-06-13] MEDS ORDERED: Fentanyl 4 mcg/Bup 0.1% Cadd 100 ML ONE ×2 (05:23→14:43)
[2020-06-13] MEDS ORDERED: Fentanyl 100 MCG/2 ML VIAL ONE (06:04)
[2020-06-13] MEDS: Lactated Ringer's 1,000 ML IV SCH ×2 (06:22→13:21)
[2020-06-13] MEDS: Misoprostol 100 MCG TAB VAG SCH ×4 (06:27→18:03)
[2020-06-13] MEDS ORDERED: diphenhydrAMINE 50 MG/ML VIAL IVP PRN (06:40)
[2020-06-13] MEDS ORDERED: Ondansetron PF 4 MG/2 ML Vial IVP PRN ×2 (06:40→16:42)
[2020-06-13] MEDS ORDERED: Promethazine HCl 25 MG/ML VIAL IM PRN ×2 (06:40→16:42)
[2020-06-13] MEDS ORDERED: Naloxone HCl 0.4 mg/ml Vial IVP PRN ×2 (06:40)
[2020-06-13] MEDS ORDERED: EPHEDRINE 25 MG/5 ML SYRINGE SLOW IVP PRN (06:40)
[2020-06-13] MEDS ORDERED: Acetaminophen 325 MG TAB PO PRN (06:40)
[2020-06-13] MEDS ORDERED: Lactated Ringer's 500 ML IV PRN (06:40)
[2020-06-13] MEDS ORDERED: Fentanyl 4 mcg/Bupivacaine 0.1% Cassette 100 ML EPIDURAL SCH (06:45)
[2020-06-13] MEDS ORDERED: Communication Order-Pharmacy FS SCH (06:45)
[2020-06-13] MEDS ORDERED: Zolpidem Tartrate 5 MG TAB PO PRN (16:42)
[2020-06-13] MEDS ORDERED: HYDROcodone/Acetaminophen 5/325 mg Tablet PO PRN ×2 (16:42)
[2020-06-13] MEDS ORDERED: Benzocaine-Menthol 82.5 ML CAN TOP PRN (16:42)
[2020-06-13] MEDS ORDERED: Preparation H Ointment 28 GM TUBE PR PRN (16:42)
[2020-06-13] MEDS ORDERED: hydrALAZINE 20 MG/ML VIAL SLOW IVP PRN (16:42)
[2020-06-13] MEDS ORDERED: Lanolin Ointment 7 GM TUBE TOP PRN (16:42)
[2020-06-13] MEDS ORDERED: Bisacodyl 10 MG SUPP PR PRN (16:42)
[2020-06-13] MEDS ORDERED: diphenhydrAMINE 25 MG CAP PO PRN (16:42)
[2020-06-13] MEDS ORDERED: NS / Oxytocin 40 units/1000ml 1,000 ML IV SCH (16:42)
[2020-06-13] MEDS ORDERED: Misoprostol 200 MCG TAB VAG PRN (16:42)
[2020-06-13] MEDS ORDERED: Milk Of Magnesia 30 ML UDCUP PO PRN (16:42)
[2020-06-13] MEDS ORDERED: Methylergonovine 0.2 MG TAB PO PRN (16:42)
[2020-06-13] MEDS: Ferrous Sulfate 325 MG TAB PO SCH (17:47)
[2020-06-13] MEDS ORDERED: NS / Oxytocin 40 units/1000ml 1,000 ML ONE (17:54)
[2020-06-13] MEDS ORDERED: Adacel (T-DAP) 0.5 ML SYRINGE IM ONE (18:00)
[2020-06-13] MEDS ORDERED: Measles/Mumps/Rubella 10 MCG/0.5 ML VIAL SC ONE (18:00)
[2020-06-13] MEDS ORDERED: Varicella virus, LIVE 0.5 ML VIAL SC ONE (18:00)
[2020-06-13] MEDS: Docusate Calcium (SURFAK) 240 MG CAP PO SCH (21:16)
[2020-06-13] MEDS: Ibuprofen 800 MG TAB PO SCH (21:16)
[2020-06-14] MEDS: Ibuprofen 800 MG TAB PO SCH ×3 (05:28→21:20)
[2020-06-14] MEDS: Prenatal Vitamin 1 TAB PO SCH (09:06)
[2020-06-14] MEDS: Docusate Calcium (SURFAK) 240 MG CAP PO SCH ×2 (09:06→21:20)
[2020-06-14] MEDS: Ferrous Sulfate 325 MG TAB PO SCH ×2 (09:07→18:17)
[2020-06-14 10:12] LABS: Hemoglobin 9.5 g/dL (12.0-16.0); Mean Corpuscular HGB CONC 32.3 g/dL (32.0-36.0); Mean Corpuscular Hemoglobin 22.2 pg (27.0-31.0); Mean Corpuscular Volume 68.7 fL (78.0-98.0); Mean Platelet Volume 11.6 fL (7.4-10.4); Platelet Count 221 thou/uL (130-400); RBC Distribution Width 15.9 % (11.5-14.5); Red Blood Cell (RBC) Count 4.26 mill/uL (4.20-5.40); White Blood Cell (WBC) Count 9.1 thou/uL (4.8-10.8)
[2020-06-15] MEDS: Ibuprofen 800 MG TAB PO SCH (04:50)
[2020-06-15 08:32] VITALS: BP 128/87; TEMP 98.5
[2020-06-15] MEDS: Prenatal Vitamin 1 TAB PO SCH (08:41)
[2020-06-15] MEDS: Ferrous Sulfate 325 MG TAB PO SCH (08:42)
[2020-06-15] MEDS: Docusate Calcium (SURFAK) 240 MG CAP PO SCH (08:42)
--- NOTE | 2020-06-16 23:33 | PQF ---
CLINICAL DOCUMENTATION CLARIFICATION FORM: Dear : Dell Stallings Date / Time: 06/16/20 2332 Please exercise your independent, professional judgment in responding to the clarification form. Clinical indicators are provided on the bottom of this form for your review Please check appropriate box(es): [ ] Associated Diagnosis: Acute blood loss anemia [ [ Abnormal laboratory findings now clinically significant [ x] Other diagnosis intrahepatic cholystasis of pregnancy [ ] Unable to determine In addition, please specify: Present on Admission (POA): [ ] Yes [ ] No [ ] Unable to determine Physician Signature: Date/Time: For continuity of documentation, please document condition throughout progress notes and discharge summary. Thank You. To be completed by CDI/Coding staff for physician review: Present Clinical Indicators - Signs / Symptoms / Labs Results and Location in Medical Record [X] RBC 4.59, Hgb 40.2, Hct 30.8 Laboratory 06/12 [X] RBC 9.5, Hgb 9.5, Hct 29.3 Laboratory 06/14 [X] BP 118/78, Pulse 80, Resp 18, Temp 97.8 Vital signs 06/12 [X] Estimated blood loss : 150 cc L&D Summary 06/13 Present Risk Factors Results and Location in Medical Record [X] IUP L&D Summary 06/13 [X] Cholestasis L&D Summary 06/13 [X] s/p L&D Summary 06/13 Present Treatments Results and Location in Medical Record [X] Series of Hgb and Hct labs Laboratory 06/12 [X] Ferrous Suldate 325 mg oral DEC 08 [X] IV Lactated Ringers 1L DEC 08 CDS/Information Systems Technician Signature: Shadia Stovall Phone #: ext [phone] Date/Time: 06/16/2020 2338 This is a permanent part of the Medical Record [facility]
== END 2020-06-15 12:55 | disposition home or self-care (01) | DRG 805 ==
LOC: L&D 19:36 → 3SW 06-13 18:19
PROVIDERS: ADMIT Obstetrics & Gynecology; ATTEND Obstetrics & Gynecology
PROC: 3E0P7VZ Introduction of Hormone into Female Reproductive, Via Natural or Artificial Opening (ICD-10-PCS; 2020-06-12)
PROC: 3E033VJ Introduction of Other Hormone into Peripheral Vein, Percutaneous Approach (ICD-10-PCS; 2020-06-12)
PROC: 10E0XZZ Delivery of Products of Conception, External Approach (ICD-10-PCS; principal; 2020-06-13)
DX: O26.62 Liver and biliary tract disorders in childbirth (principal); K83.1 Obstruction of bile duct; Z37.0 Single live birth; Z3A.36 36 weeks gestation of pregnancy; Z20.828 Contact with and (suspected) exposure to other viral communicable diseases
CPT/HCPCS: 36415; 51702; 80053; 85027; 86780; 86850; 86900; 86901; 87340; J1200; J2590; J3010

== ENCOUNTER 2020-11-29 07:08 | Emergency (ER) | payer OTHER ==
[2020-11-29] MEDS ORDERED: Ondansetron PF 4 MG/2 ML Vial ONE (07:26)
[2020-11-29 07:51] LABS: #Eosinphils 0.2 thou/uL (0.0-0.7); #Lymphocytes 0.5 thou/uL (1.20-3.40); #Monocytes 0.6 thou/uL (0.11-0.59); #Neutrophils 4.4 thou/uL (1.40-6.50); %Basophils 0.2 % (0.0-1.0); %Eosinophils 3.5 % (0.0-10.0); %Monocytes 10.7 % (0.0-10.0); %Neutrophils 76.7 % (42.0-75.0); Hemoglobin 11.6 g/dL (12.0-16.0); Mean Corpuscular HGB CONC 33.7 g/dL (32.0-36.0); Mean Corpuscular Hemoglobin 26.2 pg (27.0-31.0); Mean Corpuscular Volume 77.7 fL (78.0-98.0); Mean Platelet Volume 10.1 fL (7.4-10.4); Platelet Count 185 thou/uL (130-400); Red Blood Cell (RBC) Count 4.44 mill/uL (4.20-5.40); White Blood Cell (WBC) Count 5.7 thou/uL (4.8-10.8)
--- NOTE | 2020-11-29 08:01 | RAD ---
EXAM: CHEST ONE VIEW HISTORY: Dyspnea, fever, chills. COMPARISON: 12/14/2019 FINDINGS: The cardiac silhouette and pulmonary vasculature are within normal limits. The lungs are clear. The o sseous structures are intact. Chest is stable compared to prior exam. IMPRESSION: No acute cardiopulmonary process.
[2020-11-29 08:19] LABS: ALT (SGPT) 20 U/L (8-55); AST (SGOT) 17 U/L (5-34); Albumin 4.4 g/dL (3.5-5.0); Alkaline Phosphatase 71 U/L (40-110); Anion Gap 13 mmol/L (10-20); BUN (Urea Nitrogen) 11 mg/dL (7.0-18.7); Bilirubin, Total 1.2 mg/dL (0.2-1.2); Calc. Creatinine Clearance 0 mL/min (70-130); Calcium 9.2 mg/dL (7.8-10.44); Carbon Dioxide 21 mmol/L (22-29); Chloride 103 mmol/L (98-107); Globulin 3.7 g/dL (2.4-3.5); Glucose 102 mg/dL (70-105); Lipase 10 U/L (8-78); Potassium 3.6 mmol/L (3.5-5.1); Protein, Total 8.1 g/dL (6.0-8.3); Sodium 133 mmol/L (136-145)
[2020-11-29 08:33] LABS: Bacteria/HPF None Seen HPF (None Seen); Bilirubin Negative (Negative); Blood, Urine 2+ (Negative); Clarity Clear (Clear); Glucose, Urine (Dipstick) Normal (Negative); Ketone, Urine Negative (Negative); Leukocyte 250 Leu/uL (Negative); Nitrite Negative (Negative); Protein, Urine (Dipstick) 10 mg/dL (Neg-Trace); RBC/HPF 0-3 HPF (0-3); Specific Gravity, Urine 1.027 (1.002-1.036); Urobilinogen Normal mg/dL (Less than 2)
[2020-11-29 08:56] LABS: SARS-CoV-2 NAA Rapid Test DETECTED (NotDetected)
[2020-11-29 09:22] LABS: Bilirubin Negative (Negative); Blood, Urine Negative (Negative); Clarity Clear (Clear); Glucose, Urine (Dipstick) Normal (Negative); Ketone, Urine Negative (Negative); Leukocyte Negative Leu/uL (Negative); Nitrite Negative (Negative); Protein, Urine (Dipstick) Negative (Neg-Trace); Specific Gravity, Urine 1.011 (1.002-1.036); Urobilinogen Normal mg/dL (Less than 2); pH, Urine 6.5 (5.0-9.0)
--- NOTE | 2020-11-29 10:09 | ULT ---
Exam: Pelvic ultrasound HISTORY: Pelvic pain COMPARISON: None TECHNIQUE: Multiple grayscale and color Doppler images were obtained in a transabdominal pelvic ultra sound. Spectral analysis of the Doppler waveforms of the ovaries were performed. FINDINGS: CERVIX: Mostly obscured by shadowing. UTERUS AND ENDOMETRIUM: There is a fluid collection seen within the endometrial canal which contains both a pole and a yolk sac. Cardiac Doppler does demonstrates heart tones with a heart rate of 124 bpm. Smarr-rump length measures 0.48 cm corresponding to gestational age by ultraso und of 6 weeks and 1 day. No subchorionic hemorrhage is appreciated on this exam. No free fluid is present. RIGHT OVARY: Normal flow, without focal mass. LEFT OVARY:A 1.9 cm hypoechoic structure seen involving the left ovary. This could potentially repres ent a corpus luteal cyst, but follow-up evaluation is recommended. Normal flow is visualized in the left ovary. IMPRESSION: 1. Hypoechoic 1.9 cm structure within the left ovary. This could potentially represent a corpus lutea l cyst, but follow-up imaging is recommended. 2. Single intrauterine gestation with heart tones documented. Gestational age by measurement of the crown-rump length is 6 weeks and 1 day.
[2020-12-01 21:53] LABS: Chlamydia by PCR Not Detected (NotDetected); GC by PCR Not Detected (NotDetected)
== END 2020-11-29 11:05 | disposition home or self-care (01) ==
LOC: ERS 07:08
DX: O98.511 Other viral diseases complicating pregnancy, first trimester (principal); O99.511 Diseases of the respiratory system complicating pregnancy, first trimester; U07.1 COVID-19; O26.851 Spotting complicating pregnancy, first trimester; Z3A.01 Less than 8 weeks gestation of pregnancy
CPT/HCPCS: 0240U; 51701; 71045; 76856; 80053; 81003; 81015; 83690; 84484; 84702; 85025; 86900; 86901; 87480; 87491; 87510; 87591; 87660; 93005; 93976; 96374; J2405

== ENCOUNTER 2022-03-07 05:25 | Observation (INO) | payer OTHER ==
[2022-03-07] MEDS ORDERED: Ondansetron PF 4 MG/2 ML Vial ONE (05:50)
[2022-03-07] MEDS ORDERED: Morphine 4 MG/ML VIAL ONE (05:50)
[2022-03-07 06:15] LABS: #Eosinphils 0.2 thou/uL (0.0-0.7); #Lymphocytes 1.6 thou/uL (1.20-3.40); #Monocytes 0.4 thou/uL (0.11-0.59); %Basophils 0.1 % (0.0-1.0); %Eosinophils 4.4 % (0.0-10.0); %Lymphocytes 37.7 % (21.0-51.0); %Monocytes 9.9 % (0.0-10.0); Hemoglobin 12.7 g/dL (12.0-16.0); Mean Corpuscular HGB CONC 32.9 g/dL (32.0-36.0); Mean Corpuscular Hemoglobin 25.2 pg (27.0-31.0); Mean Corpuscular Volume 76.7 fL (78.0-98.0); Platelet Count 226 thou/uL (130-400); RBC Distribution Width 13.7 % (11.5-14.5); Red Blood Cell (RBC) Count 5.05 mill/uL (4.20-5.40); White Blood Cell (WBC) Count 4.2 thou/uL (4.8-10.8)
[2022-03-07 06:31] LABS: ALT (SGPT) 57 U/L (8-55); AST (SGOT) 26 U/L (5-34); Albumin 4.1 g/dL (3.5-5.0); Alkaline Phosphatase 94 U/L (40-110); Anion Gap 12 mmol/L (10-20); BUN (Urea Nitrogen) 10 mg/dL (7.0-18.7); Bilirubin, Total 1.1 mg/dL (0.2-1.2); Calc. Creatinine Clearance 0 mL/min (70-130); Calcium 9.7 mg/dL (7.8-10.44); Carbon Dioxide 23 mmol/L (22-29); Globulin 3.4 g/dL (2.4-3.5); Glucose 103 mg/dL (70-105); Lipase 28 U/L (8-78); Potassium 3.8 mmol/L (3.5-5.1); Protein, Total 7.5 g/dL (6.0-8.3)
[2022-03-07 07:06] LABS: Chloride 107 mmol/L (98-107); Sodium 138 mmol/L (136-145)
[2022-03-07 07:21] LABS: Bacteria/HPF None Seen HPF (None Seen); Bilirubin Negative (Negative); Blood, Urine Negative (Negative); Clarity Clear (Clear); Glucose, Urine (Dipstick) Normal (Negative); Ketone, Urine Negative (Negative); Leukocyte 75 Leu/uL (Negative); Nitrite Negative (Negative); Protein, Urine (Dipstick) Negative (Neg-Trace); RBC/HPF 0-3 HPF (0-3); Specific Gravity, Urine 1.012 (1.002-1.036); Urobilinogen Normal mg/dL (Less than 2)
[2022-03-07 07:24] LABS: Pregnancy Test - Urine (BHCG) Negative (Negative); Pregu Control Background? CLEAR/WHITE (CLR/WHITE); Pregu Control Bar Appear? YES (CONTROL BAR); Specific Gravity 1.012 (1.002-1.036)
[2022-03-07 12:48] LABS: SARS-CoV-2 NAA Rapid Test Not Detected (NotDetected)
[2022-03-07] MEDS ORDERED: Dextrose 5% in Water 1,000 ML IV PRN (15:23)
[2022-03-07] MEDS ORDERED: Acetaminophen 325 MG TAB PO PRN (15:23)
[2022-03-07] MEDS ORDERED: Dextrose 50% Abboject 50 ML SYRINGE SLOW IVP PRN (15:23)
[2022-03-07] MEDS ORDERED: Ondansetron PF 4 MG/2 ML Vial IVP PRN (15:23)
[2022-03-07] MEDS ORDERED: traMADol HCl 50 MG TAB PO PRN ×2 (15:23)
[2022-03-07 17:04] VITALS: BMI 28.0
[2022-03-07] MEDS: Sodium Chloride 0.9% 1,000 ML IV SCH (18:16)
[2022-03-07] MEDS ORDERED: Enoxaparin Sodium 40 MG/0.4 ML SYRINGE SC SCH (21:00)
[2022-03-07] MEDS ORDERED: Famotidine/PF 20 mg/2ml Vial SLOW IVP SCH (21:00)
[2022-03-07] MEDS: Famotidine 20 MG TAB PO SCH (21:23)
[2022-03-08 04:51] VITALS: BP 111/61; TEMP 98.3
[2022-03-08] MEDS ORDERED: EPINEPHrine 1 MG/ML AMP ONE (06:27)
[2022-03-08] MEDS ORDERED: Lidocaine 1% w/Epinephrine 1:100K 20 ML VIAL ONE (06:27)
[2022-03-08] MEDS ORDERED: Bupivacaine 0.25% HCL 30 ML VIAL ONE (06:27)
[2022-03-08] MEDS ORDERED: Midazolam HCl 2 mg/2 ml Vial ONE (06:43)
[2022-03-08] MEDS ORDERED: fentaNYL Citrate/PF 100 MCG/2 ML SYRINGE ONE (06:44)
[2022-03-08] MEDS ORDERED: Sodium Chloride 0.9% 100 ML ONE (07:23)
[2022-03-08] MEDS ORDERED: cefOXitin 2 GM VIAL ONE (07:23)
[2022-03-08] MEDS ORDERED: cefOXitin 2 GM in Sodium Chloride 0.9% 100 ML IVPB SCH (07:30)
[2022-03-08] MEDS ORDERED: Dexamethasone 20 MG/5 ML VIAL ONE (07:36)
[2022-03-08] MEDS ORDERED: Ondansetron PF 4 MG/2 ML Vial ONE (07:36)
[2022-03-08] MEDS ORDERED: PROPOFOL 200 MG/20 ML VIAL ONE (07:36)
[2022-03-08] MEDS ORDERED: Glycopyrrolate 0.2 MG/ML 5 ML SYRINGE ONE (07:36)
[2022-03-08] MEDS ORDERED: Rocuronium Bromide 10 MG/ML (10ML VIAL) ONE (07:36)
[2022-03-08] MEDS ORDERED: Lidocaine 1% PF 5 ML VIAL ONE (07:36)
[2022-03-08] MEDS ORDERED: Ketorolac Tromethamine 30 MG/ML VIAL ONE (07:36)
[2022-03-08] MEDS ORDERED: Fentanyl 100 MCG/2 ML VIAL ONE (09:19)
[2022-03-08] MEDS: Acetaminophen 325 MG TAB PO SCH ×2 (11:24→14:53)
[2022-03-08] MEDS: Sodium Chloride 0.9% 1,000 ML IV SCH (14:52)
[2022-03-08] MEDS: Famotidine 20 MG TAB PO SCH (14:52)
== END 2022-03-08 16:21 | disposition home or self-care (01) ==
LOC: ERS 05:25 → SDC 11:38 → SURG A 16:28
PROVIDERS: ADMIT Surgery; ATTEND Surgery
PROC: 0FT44ZZ Resection of Gallbladder, Percutaneous Endoscopic Approach (ICD-10-PCS; principal; 2022-03-08)
DX: K80.12 Calculus of gallbladder with acute and chronic cholecystitis without obstruction (principal); K66.0 Peritoneal adhesions (postprocedural) (postinfection); Z20.822 Contact with and (suspected) exposure to COVID-19
CPT/HCPCS: 74176; 76705; 80053; 81003; 81015; 81025; 83690; 85025; 88304; 96372; 96374; 96375; C1713; G0378; J0171; J0694; J1100; J1650; J1885; J2250; J2270; J2405; J2704; J3010; J3490; J7050; S0020; U0002

== ENCOUNTER 2024-06-25 21:01 | Emergency (ER) | payer OTHER ==
[2024-06-25 22:02] LABS: Bacteria/HPF None Seen HPF (None Seen); Bilirubin Negative (Negative); Blood, Urine 3+ (Negative); CAUTI Indications for Culture Pregnancy; Clarity Clear (Clear); Glucose, Urine (Dipstick) Normal (Negative); Ketone, Urine Negative (Negative); Leukocyte 250 Leu/uL (Negative); Nitrite Negative (Negative); Protein, Urine (Dipstick) Negative (Neg-Trace); RBC/HPF 0-3 HPF (0-3); Specific Gravity, Urine 1.006 (1.002-1.036); Squamous Epithelial 0-3 HPF (0-3); Urobilinogen Normal mg/dL (Less than 2); WBC/HPF 0-3 HPF (0-3)
[2024-06-25 22:06] LABS: Urine Culture Reflex Yes Yes
[2024-06-25 22:45] LABS: #Basophils 0.03 10x3/uL (0.0-0.2); %Basophils 0.4 % (0.0-1.0); %Eosinophils 1.8 % (0.0-10.0); %Lymphocytes 37.6 % (21.0-51.0); %Monocytes 7.2 % (0.0-10.0); %Neutrophils 52.7 % (42.0-75.0); Hematocrit 35.3 % (36.0-47.0); Hemoglobin 11.6 g/dL (12.0-16.0); Mean Corpuscular HGB CONC 32.9 g/dL (32.0-36.0); Mean Corpuscular Hemoglobin 25.8 pg (27.0-31.0); Mean Corpuscular Volume 78.6 fL (78.0-98.0); Mean Platelet Volume 11.5 fL (7.4-10.4); Platelet Count 332 10x3/uL (130-400); RBC Distribution Width 12.4 % (11.5-14.5); Red Blood Cell (RBC) Count 4.49 mill/uL (4.20-5.40)
[2024-06-25 23:06] LABS: ALT (SGPT) 13 U/L (8-55); AST (SGOT) 15 U/L (5-34); Alkaline Phosphatase 71 U/L (40-110); Anion Gap 11 mmol/L (10-20); BUN (Urea Nitrogen) 9 mg/dL (7.0-18.7); Bilirubin, Total 1.1 mg/dL (0.2-1.2); Calc. Creatinine Clearance 0 mL/min (70-130); Calcium 9.2 mg/dL (7.8-10.44); Carbon Dioxide 23 mmol/L (22-29); Chloride 106 mmol/L (98-107); Estimated GFR 83; Globulin 3.7 g/dL (2.4-3.5); Glucose 61 mg/dL (70-105); Lipase 23 U/L (8-78); Potassium 3.1 mmol/L (3.5-5.1); Protein, Total 7.7 g/dL (6.0-8.3); Sodium 137 mmol/L (136-145)
[2024-06-26] MEDS ORDERED: Ondansetron ODT 4 MG TAB ONE (00:50)
[2024-06-26] MEDS ORDERED: Acetaminophen 500 MG TAB ONE (00:50)
== END 2024-06-26 01:55 | disposition home or self-care (01) ==
LOC: ERS 21:01
DX: O20.9 Hemorrhage in early pregnancy, unspecified (principal); Z3A.01 Less than 8 weeks gestation of pregnancy
CPT/HCPCS: 36415; 76856; 80053; 81001; 83690; 84702; 85025; 86900; 86901; 87086; Q0162